=== PATIENT | male | born 2000 | race Caucasian/White ===

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

== ENCOUNTER 2020-06-08 00:35 | Emergency (ER) | payer MEDICAID ==
[~2020-06-08] VITALS: Ht 167.6 cm; Wt 82.3 kg
[~2020-06-08 00:35] MED LIST: NITR100C PO; POLY17PO29 PO
--- NOTE | 2020-06-08 03:21 | RAD ---
3 views left foot HISTORY: Left foot wound possible osteomyelitis AP lateral oblique views There is diffuse soft tissue swelling. There is deformity of the calcaneus which could be congenital. There is varus subluxation of the little toe. There is no lytic destructive changes. IMPRESSION: No acute bony abnormality identified. Electronically signed by: Claudy Hagen III, MD (06/08/2020 3:19 AM) [facility]
[2020-06-08 03:53] VITALS: BP 157/88
[2020-06-08] MEDS ORDERED: CEPHALEXIN 250 MG CAPSULE. PO SCH (04:15)
[2020-06-08] MEDS ORDERED: CEPH500C PO (04:26)
--- NOTE | 2020-06-08 04:26 | PHYS DOC ---
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 Patient notes that he has been having difficulty with poorly healing wound to the left foot over the last 2 years. States that he follows up with wound care but has not seen them for many months. States that over the last week he is noted worsening pain and swelling over the left foot primarily adjacent to the medial and lateral wounds. Denies any associated fevers but also feels like there was a foul smell to the wound on the lateral aspect yesterday. Review of Systems Review of Systems Constitutional: Denies fever or chills [] Eyes: Denies change in visual acuity, redness, or eye pain [] HENT: Denies nasal congestion or sore throat [] Respiratory: Denies cough or shortness of breath [] Cardiovascular: No additional information not addressed in HPI [] GI: Denies abdominal pain, nausea, vomiting, bloody stools or diarrhea [] : Denies dysuria or hematuria [] Musculoskeletal: Denies back pain or joint pain [] Integument: Denies rash or skin lesions [] Neurologic: Denies headache, focal weakness or sensory changes [] Endocrine: Denies polyuria or polydipsia [] All other systems were reviewed and found to be within normal limits, except as documented in this note. Allergies Allergies Allergies Coded Allergies Type Severity Reaction Last Updated Verified latex Allergy Unknown 06/02/16 Yes Physical Exam Physical Exam Constitutional: Well developed, well nourished, no acute distress, non-toxic appearance. [] HENT: Normocephalic, atraumatic, bilateral external ears normal, oropharynx moist, no oral exudates, nose normal. [] Eyes: PERRLA, EOMI, conjunctiva normal, no discharge. [] Neck: Normal range of motion, no tenderness, supple, no stridor. [] Cardiovascular:Heart rate regular rhythm, no murmur [] Lungs & Thorax: Bilateral breath sounds clear to auscultation [] Abdomen: Bowel sounds normal, soft, no tenderness, no masses, no pulsatile masses. [] Skin: Warm, dry, no erythema, no rash. [] Back: No tenderness, no CVA tenderness. [] Extremities: No tenderness, no cyanosis, no clubbing, ROM intact, no edema. Significant erythema and edema in the left foot over the distal dorsal surface. There is a approximately 2 x 1 cm medial wound with a well-formed eschar. There is also a 1 x 1 cm lateral wound over the 5th digit with a small amount of green material but no evidence of purulent drainage. Neurologic: Alert and oriented X 3, normal motor function, normal sensory function, no focal deficits noted. [] Psychologic: Affect normal, judgement normal, mood normal. [] Current Patient Data Vital Signs Vital Signs Date Time Temp Pulse Resp B/P (MAP) Pulse Ox O2 Delivery O2 Flow Rate FiO2 06/08/20 02:19 98.6 105 16 153/93 (113) 100 Room Air 98.6 EKG EKG [] Radiology/Procedures Radiology/Procedures [] Course & Med Decision Making Course & Med Decision Making Pertinent Labs and Imaging studies reviewed. (See chart for details) 19M presenting with pain swelling of the left lower extremity primarily at the foot with 2 adjacent wounds. There does appear to be some obvious cellulitis to the area but at this point no significant concern for necrotic tissue. Will obtain an x-ray to make sure there is no evidence of underlying osteomyelitis and if this is negative the patient can be safely discharged with oral antibiotics and wound care follow-up Dragon Disclaimer Dragon Disclaimer This electronic medical record was generated, in whole or in part, using a voice recognition dictation system. Departure Departure Impression: Primary Impression: Cellulitis of left foot Disposition: HOME / SELF CARE / HOMELESS Condition: GOOD Referrals: RAFAEL DELAROSA MD (PCP) Patient Instructions: Cellulitis Additional Instructions: EMERGENCY DEPARTMENT GENERAL DISCHARGE INSTRUCTIONS Thank you for coming to [facility] Emergency Department (ED) today and trusting us with you care. We trust that you had a positive experience in our Emergency Department. If you wish to speak to the department management, you may call the Director at [phone]. YOUR FOLLOW UP INSTRUCTIONS ARE FOLLOWS: 1. Do you have a private Doctor? If you do not have a private doctor, please ask for a resource list of physicians or clinics that may be able to assist you with follow up care. 2. The Emergency Physicain has interpreted your x-rays. The X-Ray specialist will also review them. If there is a change in the findings, you will be notified in 48 hours when at all possible. 3. A lab test or culture has been done, your results will be reviewed and you will be notified if you need a change in treatment. ADDITIONAL INSTRUCTIONS AND INFORMATION: 1. Your care today has been supervised by a physician who is specially trained in emergency care. Many problems require more than one evaluation for a complete diagnosis and treatment. We recommend that you schedule your follow up appointment as recommended to ensure complete treatment of you illness or injury. If you are unable to obtain follow up care and continue to have a problem, or if your condition worsens, we recommend that you return to the ED. 2. We are not able to safely determine your condition over the phone nor are we able to give sound medical advice over the phone. For these safety reasons, if you call for medical advice we will ask you to come to the ED for further evaluation. 3. If you have any questions regarding these discharge instructions please call the ED at [phone]. SAFETY INFORMATION: In the interest of safety, wellness, and injury prevention; we encourage you to wear your sealbelt, if you smoke; quite smoking, and we encourage family to use a protective helmet for bicycling and other sporting events that present an increased risk for head injury. IF YOUR SYMPTOMS WORSEN OR NEW SYMPTOMS DEVELOP, OR YOU HAVE CONCERNS ABOUT YOUR CONDITION; OR IF YOUR CONDITION WORSENS WHILE YOU ARE WAITING FOR YOUR FOLLOW UP APPOINTMENT; EITHER CONTACT YOUR PRIMARY CARE DOCTOR, THE PHYSICIAN WHOSE NAME AND NUMBER YOU WERE GIVEN, OR RETURN TO THE ED IMMEDIATELY. Scripts Cephalexin (CEPHALEXIN) 500 Mg Capsule 1 CAP PO QID for 10 Days, #40 CAP Prov: PHUC CAZARES MD 06/08/20 PHUC CAZARES MD Jun 08, 2020 04:26
[2020-06-08] MEDS ORDERED: CEPHALEXIN 250 MG CAPSULE. PO ONE (04:30)
== END 2020-06-08 04:37 | disposition home or self-care (01) ==
LOC: ER 00:35
DX: L03.116 Cellulitis of left lower limb (principal); M79.671 Pain in right foot; R60.0 Localized edema; I10 Essential (primary) hypertension; Z98.890 Other specified postprocedural states; Z86.14 Personal history of Methicillin resistant Staphylococcus aureus infection; Z91.040 Latex allergy status
CPT/HCPCS: 73630; 99283